=== PATIENT | female | born 1995 | race American Indian/Alaskan Native ===

== ENCOUNTER 2017-04-28 15:12 | Emergency (ER) | payer SELFPAY ==
[2017-04-28 15:53] VITALS: BP 143/90
[2017-04-28 16:16] LABS: Basophils % (Auto) 0.4 % (0.0-1.8); Eosinophils % (Auto) 0.1 % (0.0-4.3); Hematocrit 44.2 % (30.3-42.9); Hemoglobin 14.9 gm/dl (10.1-14.3); Mean Corpuscular HGB Conc 34 % (30-34); Mean Corpuscular Hemoglobin 29 pg (28-32); Mean Corpuscular Volume 87 fl (79-97); Platelet Count 245 K/mm3 (140-440); Red Blood Count 5.11 M/mm3 (3.65-5.03); Red Cell Distribution Width 13.7 % (13.2-15.2); White Blood Count 7.7 K/mm3 (4.5-11.0)
--- NOTE | 2017-04-28 18:39 | Ultrasound Report ---
FINAL REPORT PROCEDURE: US OB \T\lt; = 14 WEEKS FETUS TECHNIQUE: Real-time transabdominal sonography of the uterus, placenta, amniotic fluid, adnexa, and fetus was performed with image documentation. Measurements were obtained to determine age/size. M-mode Doppler was used to document heartbeat. CPT 65307 HISTORY: pain COMPARISON: No prior studies are available for comparison. FINDINGS: CRL: 2.7 mm, which corresponds to a gestational age of: 5 weeks, 6 days. Yolk Sac: Normal. Embryonic Cardiac Activity: 90 beats per minute Gestational Sac: Normal. Amniotic fluid: Normal. Cervix: Normal. Right Ovary: 4.2 x 1.8 x 2.2 centimeters. There is a 2.4 centimeter complex cystic lesion most likely representing corpus luteal cyst. Left Ovary: 2.9 x 1.2 x 1.4 centimeters with normal echotexture. Estimated delivery date: 12/19/2017 Uterus and adnexa: Normal. IMPRESSION: Single live intrauterine gestation at approximately 5 weeks and 6 days. EDC by US 12/19/2017 Heart rate was measured to be 90 beats per minute. This may be inaccurate due to the relatively small size of the embryo. Follow-up studies are recommended.
--- NOTE | 2017-04-28 18:40 | Ultrasound Report ---
FINAL REPORT PROCEDURE: US OB TRANSVAGINAL TECHNIQUE: Real-time transvaginal sonography of the uterus, placenta, amniotic fluid, adnexa, and fetus was performed with image documentation. Measurements were obtained to determine age/size. M-mode Doppler was used to document heartbeat. CPT 74021 HISTORY: pain COMPARISON: No prior studies are available for comparison. FINDINGS: CRL: 2.7 mm, which corresponds to a gestational age of: 5 weeks, 6 days. Yolk Sac: Normal. Embryonic Cardiac Activity: 90 beats per minute Gestational Sac: Normal. Amniotic fluid: Normal. Cervix: Normal. Right Ovary: 4.2 x 1.8 x 2.2 centimeters. There is a 2.4 centimeter complex cystic lesion most likely representing corpus luteal cyst. Left Ovary: 2.9 x 1.2 x 1.4 centimeters with normal echotexture. Estimated delivery date: 12/19/2017 Uterus and adnexa: Normal. IMPRESSION: Single live intrauterine gestation at approximately 5 weeks and 6 days. EDC by US 12/19/2017 Heart rate was measured to be 90 beats per minute. This may be inaccurate due to the relatively small size of the embryo. Follow-up studies are recommended.
== END 2017-04-28 20:35 | disposition left against medical advice (07) ==
LOC: ED 15:12
DX: R11.10 Vomiting, unspecified (principal); Z53.21 Procedure and treatment not carried out due to patient leaving prior to being seen by health care provider
CPT/HCPCS: 76801; 76817; 84702; 85025; 86850; 86900; 86901

== ENCOUNTER 2017-08-24 01:12 | Outpatient (CLI) | payer MEDICAID ==
[2017-08-24] MEDS ORDERED: LACTATED RINGERS 1,000 ML IV ONE (01:18)
[2017-08-24 01:23] VITALS: BP 122/81
[2017-08-24 02:38] LABS: Bilirubin,Urine NEG (Negative); Blood,Urine NEG (Negative); Color,Urine Yellow (Yellow); Mucus,Urine FEW /HPF; Nitrite,Urine NEG (Negative); Protein,Urine <15 mg/dL mg/dL (Negative); Urobilinogen,Urine < 2.0 mg/dL (<2.0); WBC,Urine < 1.0 /HPF (0.0-6.0)
== END 2017-08-24 02:39 | disposition home or self-care (01) ==
LOC: TRG 01:12
PROVIDERS: ATTEND Obstetrics & Gynecology
DX: O47.02 False labor before 37 completed weeks of gestation, second trimester (principal); Z3A.23 23 weeks gestation of pregnancy
CPT/HCPCS: 81001

== ENCOUNTER 2017-12-04 14:58 | Outpatient (CLI) | payer MEDICAID ==
[2017-12-04 15:21] VITALS: BP 131/65
== END 2017-12-04 17:31 | disposition home or self-care (01) ==
LOC: TRG 14:58
PROVIDERS: ATTEND Obstetrics & Gynecology
DX: O47.1 False labor at or after 37 completed weeks of gestation (principal); Z3A.38 38 weeks gestation of pregnancy

== ENCOUNTER 2017-12-05 04:19 | Inpatient (IN) | payer MEDICAID ==
[2017-12-05] MEDS ORDERED: ePHEDrine SULFATE IV PRN (04:42)
[2017-12-05] MEDS ORDERED: BRETHINE SUB-Q PRN (04:42)
[2017-12-05] MEDS ORDERED: XYLOCAINE 2% INFILTRATI ONE ×2 (04:42→08:08)
[2017-12-05] MEDS ORDERED: STADOL IV PRN (04:42)
[2017-12-05] MEDS ORDERED: MINERAL OIL PO PRN (04:42)
[2017-12-05] MEDS ORDERED: BRETHINE IVP PRN (04:42)
[2017-12-05] MEDS ORDERED: ZOFRAN IV PRN (04:42)
--- NOTE | 2017-12-05 04:46 | History and Physical Report ---
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 Family/Genetic History: none Social history: no significant social history - Obstetrical History Expected Date of Delivery: 12/18/17 Actual Gestation: 38 Week(s) 1 Day(s) : 1 Para: 0 Hx # Term Pregnancies: 0 Number of Living Children: 0 Medications and Allergies Allergies Allergy/AdvReac Type Severity Reaction Status Date / Time No Known Allergies Allergy Verified 05/29/15 23:33 Home Medications Medication Instructions Recorded Confirmed Last Taken Type Cyclobenzaprine [Flexeril 10 MG 10 mg PO Q8H PRN #21 tablet 05/30/15 Unknown Rx TAB] HYDROcodone/APAP 5-325 [[place] 1 each PO Q6HR PRN #12 tablet 05/30/15 Unknown Rx 5/325] Review of Systems All systems: negative - Vital Signs Vital signs: Vital Signs Temp Pulse Resp BP Pulse Ox 97.1 F L 77 24 136/84 99 12/05/17 04:22 12/05/17 04:22 12/05/17 04:22 12/05/17 04:22 12/05/17 04:22 Temp Pulse Resp BP Pulse Ox 97.1 F L 77 24 136/84 100 12/05/17 04:22 12/05/17 04:45 12/05/17 04:22 12/05/17 04:30 12/05/17 04:45 - Physical Exam Breasts: Positive: deferred Cardiovascular: Regular rate Lungs: Positive: Clear to auscultation Abdomen: Positive: soft Genitourinary (Female): Positive: normal external genitalia Vulva: both: normal Vagina: Positive: normal moisture Uterus: Positive: enlarged Anus/Rectum: Positive: normal perianal skin Deep Tendon Reflex Grade: Normal +2 - Obstetrical FHR: category 1 Uterine Contraction Monitor Mode: External Cervical Dilatation: 4 (nurse exam) Cervical Effacement Percentage: 80 Uterine Contraction Frequency (min): 2-3 Uterine Contraction Pattern: Regular Uterine Contraction Intensity: Strong/Firm Results Result Diagrams: 12/05/17 05:31 All other labs normal. Assessment and Plan A; IUP @ 38.1 weeks active labor P; Expect
[2017-12-05] MEDS ORDERED: PITOCin/NS 20 UNIT/1000ML DRIP 20 UNITS/1,000 ML BAG IV SCH (05:00)
[2017-12-05] MEDS ORDERED: LACTATED RINGERS 1,000 ML IV SCH (05:00)
[2017-12-05 05:47] LABS: Hematocrit 34.5 % (30.3-42.9); Hemoglobin 12.1 gm/dl (10.1-14.3); Mean Corpuscular HGB Conc 35 % (30-34); Mean Corpuscular Hemoglobin 31 pg (28-32); Mean Corpuscular Volume 89 fl (79-97); Platelet Count 206 K/mm3 (140-440); Red Blood Count 3.87 M/mm3 (3.65-5.03); Red Cell Distribution Width 12.9 % (13.2-15.2)
--- NOTE | 2017-12-05 07:12 | Event Note ---
Date: 12/05/17 O: VE /-1, Cat I tracing A: 38 + weeks P; Epidural if possible Expect
--- NOTE | 2017-12-05 07:31 | Event Note ---
Date: 12/05/17 O; VE /-1, arom, blood tinged fluid, bloddy show, Cat I tracing A: Active labor P : Declined epidura, expect
[2017-12-05] MEDS ORDERED: SUBLIMAZE IV ONE (07:51)
[2017-12-05] MEDS ORDERED: PITOCin/NS 30 UNIT/500ML 30 UNITS/500 ML BAG IV SCH (08:00)
--- NOTE | 2017-12-05 08:50 | Procedure Note ---
OB Delivery Note - Delivery Date of Delivery: 12/05/17 Surgeon: MALKA YA Estimated blood loss: 300cc - Vaginal Delivery presentation: vertex Delivery position: OA Intrapartum events: none Delivery augmentation: rupture of membranes Delivery monitor: external FHT, external uterine Route of delivery: Delivery placenta: spontaneous Delivery laceration: 1st degree Delivery repair: vicryl Anesthesia: local Delivery comments: of a viable female 6#-11 oz on 12/05/17 over intact perineum. Placenta delivered 3 VCI. Left vaginal side wall laceration and right labial laceration repaired with 3-vicryl under local anesthesia. FF @ U-2, lochia small. EBL 300 cc - Infant A at 1 minute: 8 at 5 minutes: 9 Infant Gender: Female (6# 11)
[2017-12-05] MEDS ORDERED: LANSINOH TP PRN (09:00)
[2017-12-05] MEDS ORDERED: TYLENOL PO PRN (09:00)
[2017-12-05] MEDS ORDERED: SODIUM CHLORIDE FLUSH SYRINGE 10 ML IV PRN (09:00)
[2017-12-05] MEDS ORDERED: SUBLIMAZE IV NR (09:00)
[2017-12-05] MEDS ORDERED: DULCOLAX PR PRN (10:00)
[2017-12-05 10:04] LABS: Hematocrit 33.1 % (30.3-42.9); Hemoglobin 11.7 gm/dl (10.1-14.3); Mean Corpuscular HGB Conc 35 % (30-34); Mean Corpuscular Hemoglobin 31 pg (28-32); Mean Corpuscular Volume 89 fl (79-97); Platelet Count 209 K/mm3 (140-440); Red Blood Count 3.72 M/mm3 (3.65-5.03); Red Cell Distribution Width 13.5 % (13.2-15.2)
[2017-12-05 11:15] LABS: Basophils % (Manual) 0 % (0.0-1.8); Eosinophils % (Manual) 0 % (0.0-4.3); Total Cells Counted 100
[2017-12-05 11:16] LABS: Platelet Estimate Cons; RBC Morphology Normal
[2017-12-05] MEDS: TUCKS PAD TP PRN (18:01)
[2017-12-05] MEDS: DERMOPLAST TP PRN (18:01)
[2017-12-05] MEDS: NORCO 5/325 PO PRN (19:51)
[2017-12-05] MEDS: MOTRIN PO SCH (19:52)
[2017-12-05 21:27] LABS: Hematocrit 32.7 % (30.3-42.9); Hemoglobin 11.2 gm/dl (10.1-14.3)
[2017-12-06] MEDS: NORCO 5/325 PO PRN ×2 (05:03→16:20)
[2017-12-06] MEDS: MOTRIN PO SCH ×4 (05:03→18:40)
[2017-12-06] MEDS ORDERED: BOOSTRIX IM ONE (06:00)
--- NOTE | 2017-12-06 09:23 | Progress Note ---
Assessment and Plan A: PPD#1 s/p Bottle feeding Stable P: Routine PP care Discharge home today F/U [facility] 6 weeks Undecided on contraception Subjective - Subjective Date of service: 12/06/17 Principal diagnosis: Interval history: See H&P and delivery note Patient reports: appetite normal, voiding normally, pain well controlled, flatus , ambulating normally [place]: doing well, bottle feeding Objective - Vital Signs Latest vital signs: Vital Signs Temp Pulse Resp BP BP Pulse Ox 12/06/17 00:05 98.9 F 76 18 108/50 12/05/17 16:51 99.7 F H 118 H 18 132/85 100 12/05/17 11:52 97.1 F L 80 14 92/53 100 12/05/17 10:40 98 F 86 20 126/83 99 12/05/17 09:38 85 126/66 Intake and Output 12/05/17 12/06/17 12/06/17 23:59 07:59 15:59 Intake Total 240 240 Balance 240 240 Intake: Oral 240 240 Other: Total, Intake Amount 240 240 # Voids Void 1 1 - Exam Breasts: Present: normal Cardiovascular: Present: Regular rate, Normal S1, Normal S2 Lungs: Present: Clear to auscultation, Normal air movement Abdomen: Present: normal appearance, soft, normal bowel sounds. Absent: distention Vulva: both: normal Uterus: Present: firm, fundal height below umbilicus (-1) Extremities: Present: normal Deep Tendon Reflex Grade: Normal +2 - Labs Labs: Abnormal lab results 12/05/17 Range/Units 09:46 WBC 18.5 H (4.5-11.0) K/mm3 MCHC 35 H (30-34) % Seg Neuts % (Manual) 94.0 H (40.0-70.0) % Lymphocytes % (Manual) 3.0 L (13.4-35.0) % Seg Neutrophils # Man 17.4 H (1.8-7.7) K/mm3 Lymphocytes # (Manual) 0.6 L (1.2-5.4) K/mm3
--- NOTE | 2017-12-06 09:24 | Discharge Summary ---
Providers - Providers Date of Admission: 12/05/17 05:09 Date of discharge: 12/06/17 Attending physician: BERRY MCINTYRE MD Primary care physician: BERRY MCINTYRE MD Hospitalization Reason for admission: active labor, IUP at term Delivery: Procedure details: See delivery note Episiotomy: none Laceration: none Other procedures: none complications: none Discharge diagnosis: IUP at term delivered [place] baby: female Condition at discharge: Good Disposition: DC-01 TO HOME OR SELFCARE Plan - Provider Discharge Summary Activity: routine, no sex for 6 weeks, no heavy lifting 4 weeks, no strenuous exercise Diet: routine Instructions: routine Additional instructions: [] Smoking cessation referral if applicable(refer to patient education folder for contact #) [] Refer to [facility]'s [facility] Booklet Call your doctor immediately for: * Fever > 100.5 * Heavy vaginal bleeding ( >1 pad per hour) * Severe persistent headache * Shortness of breath * Reddened, hot, painful area to leg or breast * Drainage or odor from incision. * Keep incision clean and dry at all times and follow doctor's instructions regarding bathing/showering - Follow up plan Follow up: BERRY MCINTYRE MD [Primary Care Provider] - 6 Weeks
[2017-12-06] MEDS: COLACE PO SCH (22:24)
[2017-12-06] MEDS: TUCKS PAD TP PRN (22:24)
[2017-12-06] MEDS: DERMOPLAST TP PRN (22:24)
[2017-12-07] MEDS: MOTRIN PO SCH ×2 (06:10)
[2017-12-07] MEDS: NORCO 5/325 PO PRN (11:00)
[2017-12-07] MEDS: COLACE PO SCH (11:00)
[2017-12-07 12:16] VITALS: BP 118/68
== END 2017-12-07 11:45 | disposition home or self-care (01) | DRG 775 ==
LOC: TRG 04:19 → OBSVTOIN 05:09 → LD 05:09 → OB 10:44
PROVIDERS: ADMIT Obstetrics & Gynecology; ATTEND Obstetrics & Gynecology
PROC: 10E0XZZ Delivery of Products of Conception, External Approach (ICD-10-PCS; principal; 2017-12-05)
PROC: 0HQ9XZZ Repair Perineum Skin, External Approach (ICD-10-PCS; 2017-12-05)
PROC: 10E0XZZ Delivery of Products of Conception, External Approach (ICD-10-PCS; 2017-12-05)
PROC: 10907ZC Drainage of Amniotic Fluid, Therapeutic from Products of Conception, Via Natural or Artificial Opening (ICD-10-PCS; 2017-12-05)
DX: O70.0 First degree perineal laceration during delivery (principal); Z3A.38 38 weeks gestation of pregnancy; Z37.0 Single live birth
CPT/HCPCS: 36415; 85007; 85014; 85018; 85025; 85027; 86850; 86900; 86901; 90471; 90715; J0595; J2590; J7120

== ENCOUNTER 2017-12-16 16:51 | Emergency (ER) | payer MEDICAID ==
[2017-12-16 17:08] VITALS: BP 131/72
== END 2017-12-16 18:07 | disposition left against medical advice (07) ==
LOC: ED 16:51
DX: R51 Headache (principal); R07.0 Pain in throat; Z53.21 Procedure and treatment not carried out due to patient leaving prior to being seen by health care provider

== ENCOUNTER 2019-08-24 11:28 | Emergency (ER) | payer SELFPAY ==
--- NOTE | 2019-08-24 12:33 | Emergency Department Report ---
Blank Doc - Documentation Documentation: 24-year-old female that presents with vaginal bleeding and pelvic pain. Stated is about 6 weeks . This initial assessment/diagnostic orders/clinical plan/treatment(s) is/are subject to change based on patient's health status, clinical progression and re- assessment by fellow clinical providers in the ED. Further treatment and workup at subsequent clinical providers discretion. Patient/guardians urged not to elope from the ED as their condition may be serious if not clinically assessed and managed. Initial orders include: 1- Patient sent to [facility] for further evaluation and treatment 2- labs 3- UA 4- US OB
--- NOTE | 2019-08-24 13:23 | Ultrasound Report ---
ULTRASOUND OBSTETRIC INDICATION: with pelvic pain. TECHNIQUE: Transabdominal and Transvaginal. COMPARISON: OB ultrasound from 04/28/2017. FINDINGS: GESTATIONAL SAC: Well-defined oval shape and intrauterine in location. YOLK SAC: No significant abnormality. EMBRYO/FETUS: No significant abnormality. - [place]-Rump Length = 0.90 cm = 6 weeks, 6 day(s). - Heart Rate = 141 beats per minute. ADNEXA: No significant abnormality. FREE FLUID: None. ADDITIONAL FINDINGS: None. IMPRESSION: 1. Single, living intrauterine with estimated sonographic age of 6 weeks, 6 day(s). Signer Name: Curry Lang MD Signed: 08/24/2019 1:19 PM Workstation Name: [id number]
--- NOTE | 2019-08-24 13:23 | Ultrasound Report ---
ULTRASOUND OBSTETRIC INDICATION: with pelvic pain. TECHNIQUE: Transabdominal and Transvaginal. COMPARISON: OB ultrasound from 04/28/2017. FINDINGS: GESTATIONAL SAC: Well-defined oval shape and intrauterine in location. YOLK SAC: No significant abnormality. EMBRYO/FETUS: No significant abnormality. - [place]-Rump Length = 0.90 cm = 6 weeks, 6 day(s). - Heart Rate = 141 beats per minute. ADNEXA: No significant abnormality. FREE FLUID: None. ADDITIONAL FINDINGS: None. IMPRESSION: 1. Single, living intrauterine with estimated sonographic age of 6 weeks, 6 day(s). Signer Name: Curry Lang MD Signed: 08/24/2019 1:19 PM Workstation Name: [id number]
[2019-08-24 13:27] LABS: Bacteria,Urine 1+ /HPF (Negative); Bilirubin,Urine NEG (Negative); Blood,Urine NEG (Negative); Color,Urine Amber (Yellow); Mucus,Urine 3+ /HPF
[2019-08-24 13:51] LABS: Basophils % (Auto) 0.5 % (0.0-1.8); Eosinophils % (Auto) 0.3 % (0.0-4.3); Hematocrit 45.9 % (30.3-42.9); Hemoglobin 15.9 gm/dl (10.1-14.3); Lymphocytes # (Auto) 1.5 K/mm3 (1.2-5.4); Lymphocytes % (Auto) 15.6 % (13.4-35.0); Mean Corpuscular HGB Conc 35 % (30-34); Mean Corpuscular Volume 87 fl (79-97); Monocytes # (Auto) 0.8 K/mm3 (0.0-0.8); Monocytes % (Auto) 8.2 % (0.0-7.3); Platelet Count 255 K/mm3 (140-440); Red Blood Count 5.29 M/mm3 (3.65-5.03); Red Cell Distribution Width 12.8 % (13.2-15.2)
--- NOTE | 2019-08-24 15:36 | Emergency Department Report ---
ED HPI - General Chief complaint: Vaginal Bleeding Stated complaint: SPOTTING/PAIN Time Seen by Provider: 08/24/19 12:32 Source: patient Mode of arrival: Ambulatory Limitations: No Limitations - History of Present Illness Initial comments: This is a 24-year-old -Citizen Of [place] female who presents to the emergency room with pelvic pain and vaginal spotting. Past medical history of migraines. Patient states she is 5 weeks . She is not followed by an PACKAGE CLERK. Her last menstrual period was 07/02/2019, A1 . She denies complications with prior . She reports vaginal discharge. Patient reports abdominal pain started today and vaginal spotting started 2 days ago. Denies urinary frequency, urgency, dysuria, or back pain. MD Complaint: abdominal pain Onset/Timin -: days(s) Location: abdomen Radiation: none Severity: mild Severity scale (0 -10): 3 Quality: cramping Consistency: intermittent Improves with: none Worsens with: none Associated symptoms: nausea/vomiting, vaginal discharge, abdominal pain. denies: dysuria, headache, malaise, shortness of breath Vaginal bleeding: light :: Yes Number of weeks : 5 OB History - Current : no complications OB History - Previous Pregnancies: no complications Last menstrual period: 07/02/19 Pre-deirdre care: none - Related Data : 3 Para: 1 Ab: 1 () Previous Rx's Medication Instructions Recorded Last Taken Type Ondansetron [Zofran Odt] 4 mg PO Q8HR PRN #20 tab.rapdis 08/24/19 Unknown Rx 21/Iron Fu/Folic Acid 1 each PO DAILY #30 tablet 08/24/19 Unknown Rx [ Complete Caplet] metroNIDAZOLE [Flagyl TAB] 500 mg PO Q12HR #14 tab 08/24/19 Unknown Rx Allergies Allergy/AdvReac Type Severity Reaction Status Date / Time No Known Allergies Allergy Verified 05/29/15 23:33 ED Review of Systems ROS: Stated complaint: SPOTTING/PAIN Other details as noted in HPI Constitutional: denies: chills, fever Respiratory: denies: cough, shortness of breath, wheezing Cardiovascular: denies: chest pain, palpitations Gastrointestinal: abdominal pain. denies: nausea, diarrhea Genitourinary: discharge, other (vaginal bleeding during ). denies: urgency, dysuria, hematuria Musculoskeletal: denies: back pain, joint swelling, arthralgia Skin: denies: rash, lesions Neurological: denies: headache, weakness, paresthesias Psychiatric: denies: anxiety, depression ED Past Medical Hx - Past Medical History Previous Medical History?: Yes Hx Hypertension: No Hx Congestive Heart Failure: No Hx Diabetes: No Hx Deep Vein Thrombosis: No Hx Renal Disease: No Hx Sickle Cell Disease: No Hx Headaches / Migraines: Yes Hx Seizures: No Hx Asthma: No Hx COPD: No Hx HIV: No Additional medical history: denies - Surgical History Past Surgical History?: No Additional Surgical History: denies - Social History Smoking Status: Never Smoker Substance Use Type: None - Medications Home Medications: Home Medications Medication Instructions Recorded Confirmed Last Taken Type Ondansetron [Zofran Odt] 4 mg PO Q8HR PRN #20 tab.rapdis 08/24/19 Unknown Rx 21/Iron Fu/Folic Acid 1 each PO DAILY #30 tablet 08/24/19 Unknown Rx [ Complete Caplet] metroNIDAZOLE [Flagyl TAB] 500 mg PO Q12HR #14 tab 08/24/19 Unknown Rx ED Physical Exam - General Limitations: No Limitations General appearance: alert, in no apparent distress - Respiratory Respiratory exam: Present: normal lung sounds bilaterally. Absent: respiratory distress - Cardiovascular Cardiovascular Exam: Present: regular rate, normal rhythm. Absent: systolic murmur, diastolic murmur, rubs, gallop - GI/Abdominal GI/Abdominal exam: Present: soft, normal bowel sounds. Absent: distended, tenderness, guarding, rebound, rigid, organomegaly - External exam: Present: normal external exam Speculum exam: Present: erythema, vaginal discharge (malodorous greenish yellow discharge). Absent: cervical discharge, vaginal bleeding, foreign body, tissue, laceration Bi-manual exam: Present: uterine enlargement. Absent: adnexal tenderness - Extremities Exam Extremities exam: Present: normal inspection - Back Exam Back exam: Absent: CVA tenderness (R), CVA tenderness (L) - Neurological Exam Neurological exam: Present: alert, oriented X3, normal gait - Psychiatric Psychiatric exam: Present: normal affect, normal mood - Skin Skin exam: Present: warm, dry, intact, normal color. Absent: rash ED Course Vital Signs 08/24/19 11:35 Temperature 99.0 F Pulse Rate 104 H Respiratory 16 Rate Blood Pressure 137/86 O2 Sat by Pulse 98 Oximetry ED Medical Decision Making - Lab Data Result diagrams: 08/24/19 13:17 Lab Results 08/24/19 08/24/19 08/24/19 Range/Units 12:56 13:14 13:17 WBC 9.5 (4.5-11.0) K/mm3 RBC 5.29 H (3.65-5.03) M/mm3 Hgb 15.9 H (10.1-14.3) gm/dl Hct 45.9 H (30.3-42.9) % MCV 87 (79-97) fl MCH 30 (28-32) pg MCHC 35 H (30-34) % RDW 12.8 L (13.2-15.2) % Plt Count 255 (140-440) K/mm3 Lymph % (Auto) 15.6 (13.4-35.0) % [place] % (Auto) 8.2 H (0.0-7.3) % Eos % (Auto) 0.3 (0.0-4.3) % Baso % (Auto) 0.5 (0.0-1.8) % Lymph # 1.5 (1.2-5.4) K/mm3 [place] # 0.8 (0.0-0.8) K/mm3 Eos # 0.0 (0.0-0.4) K/mm3 Baso # 0.0 (0.0-0.1) K/mm3 Seg Neutrophils % 75.4 H (40.0-70.0) % Seg Neutrophils # 7.1 (1.8-7.7) K/mm3 HCG, Quant (0-4) mIU/mL Urine Color [place] (Yellow) Urine Turbidity Slightly-cloudy (Clear) Urine pH 6.0 (5.0-7.0) Ur Specific [place] 1.034 H (1.003-1.030) Urine Protein 30 mg/dl (Negative) mg/dL Urine Glucose (UA) Neg (Negative) mg/dL Urine Ketones 80 (Negative) mg/dL Urine Blood Neg (Negative) Urine Nitrite Neg (Negative) Urine Bilirubin Neg (Negative) Urine Urobilinogen 4.0 (<2.0) mg/dL Ur Leukocyte Esterase Sm (Negative) Urine WBC (Auto) 13.0 H (0.0-6.0) /HPF Urine RBC (Auto) 2.0 (0.0-6.0) /HPF U Epithel Cells (Auto) 7.0 (0-13.0) /HPF Urine Bacteria (Auto) 1+ (Negative) /HPF Urine Mucus 3+ /HPF Blood Type A POSITIVE 08/24/19 Range/Units 13:17 WBC (4.5-11.0) K/mm3 RBC (3.65-5.03) M/mm3 Hgb (10.1-14.3) gm/dl Hct (30.3-42.9) % MCV (79-97) fl MCH (28-32) pg MCHC (30-34) % RDW (13.2-15.2) % Plt Count (140-440) K/mm3 Lymph % (Auto) (13.4-35.0) % [place] % (Auto) (0.0-7.3) % Eos % (Auto) (0.0-4.3) % Baso % (Auto) (0.0-1.8) % Lymph # (1.2-5.4) K/mm3 [place] # (0.0-0.8) K/mm3 Eos # (0.0-0.4) K/mm3 Baso # (0.0-0.1) K/mm3 Seg Neutrophils % (40.0-70.0) % Seg Neutrophils # (1.8-7.7) K/mm3 HCG, Quant 670927 H (0-4) mIU/mL Urine Color (Yellow) Urine Turbidity (Clear) Urine pH (5.0-7.0) Ur Specific [place] (1.003-1.030) Urine Protein (Negative) mg/dL Urine Glucose (UA) (Negative) mg/dL Urine Ketones (Negative) mg/dL Urine Blood (Negative) Urine Nitrite (Negative) Urine Bilirubin (Negative) Urine Urobilinogen (<2.0) mg/dL Ur Leukocyte Esterase (Negative) Urine WBC (Auto) (0.0-6.0) /HPF Urine RBC (Auto) (0.0-6.0) /HPF U Epithel Cells (Auto) (0-13.0) /HPF Urine Bacteria (Auto) (Negative) /HPF Urine Mucus /HPF Blood Type - Radiology Data Radiology results: report reviewed ULTRASOUND OBSTETRIC INDICATION: with pelvic pain. TECHNIQUE: Transabdominal and Transvaginal. COMPARISON: OB ultrasound from 04/28/2017. FINDINGS: GESTATIONAL SAC: Well-defined oval shape and intrauterine in location. YOLK SAC: No significant abnormality. EMBRYO/FETUS: No significant abnormality. - [place]-Rump Length = 0.90 cm = 6 weeks, 6 day(s). - Heart Rate = 141 beats per minute. ADNEXA: No significant abnormality. FREE FLUID: None. ADDITIONAL FINDINGS: None. IMPRESSION: 1. Single, living intrauterine with estimated sonographic age of 6 weeks, 6 day(s). - Medical Decision Making 24-year-old female presents with vaginal discharge, pelvic cramping, and vaginal bleeding for 2 days. Patient is 5 weeks with no PACKAGE CLERK follow-up. Vitals are stable and patient in no acute distress. Labs and OB ultrasound was obtained. A pelvic exam was performed. Wet prep positive for clue cells, negative Trichomonas and yeast. Gonorrhea and chlamydia is pending. Negative blood on urinalysis. All of the labs are unremarkable. Abdomen nontender on exam. Ultrasound findings of a single, living intrauterine with estimated sonographic age of 6 weeks, 6 day(s). Patient empirically treated with Rocephin and azithromycin to cover gonorrhea and chlamydia. Start metronidazole 500 mg by mouth twice a day 7 days. Referral to PACKAGE CLERK for continued care. Patient discharged home stable. Critical care attestation.: If time is entered above; I have spent that time in minutes in the direct care of this critically ill patient, excluding procedure time. ED Disposition Clinical Impression: Pelvic cramping, Nausea and vomiting during , Cervicitis, Bacterial vaginitis Disposition: DC- TO HOME OR SELFCARE Is pt being admited?: No Condition: Stable Instructions: Cervicitis (ED), Bacterial Vaginosis (ED) Additional Instructions: Complete full course of antibiotics as prescribed. Follow up with a PACKAGE CLERK. I have provided a list of PACKAGE CLERK's below in referral section for you to follow up with. Return to the emergency room if you start having vaginal bleeding, sharp abdominal pain, and or back pain. Prescriptions: metroNIDAZOLE [Flagyl TAB] 500 mg PO Q12HR #14 tab 21/Iron Fu/Folic Acid [ Complete Caplet] 1 each PO DAILY #30 tablet Ondansetron [Zofran Odt] 4 mg PO Q8HR PRN #20 tab.rapdis PRN Reason: Nausea And Vomiting Referrals: [facility] [Provider Group] - 3-5 Days [facility] [Provider Group] - 3-5 Days [facility] [Provider Group] - 3-5 Days Forms: STI Treatment and Prevention Time of Disposition: 16:18
[2019-08-24] MEDS ORDERED: ONDANSETRON 4 MG ODT TAB PO ONE (15:59)
[2019-08-24] MEDS ORDERED: AZITHROMYCIN 250 MG TAB PO ONE (16:08)
[2019-08-24] MEDS ORDERED: LIDOCAINE-MPF (1%) 10 MG/1 ML VIAL 5 ML INFILTRATI ONE (16:08)
[2019-08-24 17:23] VITALS: BP 122/80
== END 2019-08-24 17:21 | disposition home or self-care (01) ==
LOC: ED 11:28
DX: O23.591 Infection of other part of genital tract in pregnancy, first trimester (principal); O23.511 Infections of cervix in pregnancy, first trimester; O21.8 Other vomiting complicating pregnancy; Z79.899 Other long term (current) drug therapy; Z3A.01 Less than 8 weeks gestation of pregnancy
CPT/HCPCS: 36415; 76801; 76817; 81001; 84702; 85025; 86900; 86901; 87086; 87210; 87591; 96372; 99284; J0696; Q0162

== ENCOUNTER 2020-10-19 05:47 | Day surgery (SDC) | payer MEDICAID ==
--- NOTE | 2020-10-18 16:31 | History and Physical Report ---
History of Present Illness Date of examination: 10/18/20 Chief complaint: Undesired Fertility History of present illness: Pt is a 25 year old presents for surgical sterilization. She is aware of long acting contraceptive methods and she desires to proceed. Past History Past Medical History: migraines, other (anemia ) Past Surgical History: no surgical history Family/Genetic History: none Social history: no significant social history - Obstetrical History : 4 Para: 2 Hx # Term Pregnancies: 2 Number of Pregnancies: 0 Spontaneous Abortions: 0 Induced : 2 Number of Living Children: 2 Medications and Allergies Allergies Allergy/AdvReac Type Severity Reaction Status Date / Time No Known Allergies Allergy Verified 10/11/20 12:40 Home Medications Medication Instructions Recorded Confirmed Last Taken Type No Known Home Medications [No 10/11/20 10/11/20 Unknown History Reported Home Medications] Active Meds: Active Medications Acetaminophen (Acetaminophen 500 Mg Tab) 1,000 mg PO PREOP LOULOU Stop: 10/19/20 21:00 Celecoxib (Celecoxib 200 Mg Cap) 200 mg PO PREOP NR Stop: 10/19/20 21:00 Gabapentin (Gabapentin 300 Mg Cap) 300 mg PO PREOP NR Stop: 10/19/20 21:00 Lactated Ringer's (Lactated Ringers) 1,000 mls @ 100 mls/hr IV DIRECT LOULOU Stop: 10/19/20 23:59 Midazolam HCl (Midazolam 2 Mg/2 Ml Inj) 2 mg IV PREOP NR Stop: 10/19/20 21:00 Review of Systems All systems: negative - Physical Exam Breasts: Positive: deferred Abdomen: Positive: soft Results All other labs normal. Assessment and Plan A: Undesired Fertility Migraine Anemia P: Proceed with laparoscopic bilateral tubal ligation and other indicated procedures
[~2020-10-19 05:47] MED LIST: ACETAMINOPHEN 500 MG TAB PO SCH; CELECOXIB 200 MG CAP PO NR; GABAPENTIN 300 MG CAP PO NR; LACTATED RINGERS 1,000 ML IV SCH; MIDAZOLAM 2 MG/2 ML INJ IV NR
[2020-10-19] MEDS ORDERED: LACTATED RINGERS 1,000 ML IV SCH (06:00)
[2020-10-19] MEDS ORDERED: ceFAZolin/Water 2 GM/20 ML 2 GM/20 ML SYRINGE IV NR (06:00)
[2020-10-19] MEDS ORDERED: ACETAMINOPHEN 500 MG TAB PO SCH (06:00)
[2020-10-19] MEDS ORDERED: CELECOXIB 200 MG CAP PO NR (06:00)
[2020-10-19] MEDS ORDERED: MIDAZOLAM 2 MG/2 ML INJ IV NR (06:00)
[2020-10-19] MEDS ORDERED: GABAPENTIN 300 MG CAP PO NR (06:00)
[2020-10-19] MEDS ORDERED: BACTERIOSTATIC SODIUM CHLORIDE 0.9% 30 ML VIAL INFILTRATI ONE (06:09)
== END 2020-10-19 05:48 | disposition home or self-care (01) ==
LOC: OR 05:47
PROVIDERS: ATTEND Obstetrics & Gynecology
DX: Z30.2 Encounter for sterilization (principal); K21.9 Gastro-esophageal reflux disease without esophagitis; D64.9 Anemia, unspecified; Z53.8 Procedure and treatment not carried out for other reasons; Z79.899 Other long term (current) drug therapy
CPT/HCPCS: 81025; J0690; J2250; J7120